=== PATIENT | male | born 1975 | race Caucasian/White ===

== ENCOUNTER 2024-04-24 11:57 | Emergency (ER) | payer OTHER ==
[~2024-04-24] VITALS: Ht 157.5 cm; Wt 72.0 kg
[2024-04-24] MEDS ORDERED: NAPROXEN500 MG PO (13:21)
[2024-04-24] MEDS ORDERED: KETOROLAC TROMETHAMINE 30 MG/ML SDV IM ONE (13:25)
[2024-04-24 13:31] VITALS: BP 160/102
== END 2024-04-24 13:46 | disposition home or self-care (01) | DRG 563 ==
LOC: ED 11:57
DX: S92.425A Nondisplaced fracture of distal phalanx of left great toe, initial encounter for closed fracture (principal); F17.210 Nicotine dependence, cigarettes, uncomplicated; W20.8XXA Other cause of strike by thrown, projected or falling object, initial encounter; Y99.0 Civilian activity done for income or pay